=== PATIENT | male | born 1940 | race Asian ===

== ENCOUNTER 2016-09-10 18:30 | Emergency (ER) | payer MEDICAID, OTHER ==
[2016-09-10 19:04] VITALS: RESP 18
--- NOTE | 2016-09-10 19:22 | EDPHY ---
H & P Stated Complaint: bph/shaffer cath removed at 11 am/was unable to void since Time Seen by Provider: 09/10/16 19:22 - Personal History Current Tetanus/Diphtheria Vaccine: Yes - Medical/Surgical History Hx Asthma: No Hx Chronic Respiratory Disease: No Hx Diabetes: No Hx Cardiac Disease: No Hx Renal Disease: No Hx Cirrhosis: No Hx Alcoholism: No Hx HIV/AIDS: No Hx Splenectomy or Spleen Trauma: No Other PMH: HTN bph - Social History Smoking Status: Never smoked Constitutional: Initial Vital Signs Temperature (C) 36.7 C 09/10/16 19:01 Heart Rate 70 09/10/16 19:01 Respiratory Rate 18 09/10/16 19:01 Blood Pressure 110/62 09/10/16 19:01 O2 Sat (%) 98 09/10/16 19:01 O2 Delivery Mode Room Air Allergies/Adverse Reactions: No Known Allergies Allergy (Verified 09/10/16 19:00) Home Medications: Medication Instructions Recorded Htn Med 05/26/14 Ondansetron Odt [Zofran Odt 4 mg 4 mg PO Q4 PRN #10 tab 09/10/16 (RX)] Medical Decision Making ED Course/Re-evaluation: CHIEF COMPLAINT: Difficulty urinating. HISTORY OF PRESENT ILLNESS: This patient is a Czech-speaking 76 year old male complaining of difficulty urinating since catheter removal today around 11am. He had a prostate surgery procedure at [facility] last week, and was directed to remove his catheter today. He has not been able to urinate well and feels his urethra was swollen. He has also not been eating or drinking much due to nausea , which he suspects is related to the antibiotics he was taking when his catheter was in place. No fever, chills, vomiting, shortness of breath, chest pain, or other associated symptoms. HPI obtained primarily from daughter translating at bedside. REVIEW OF SYSTEMS: A 10 point review of systems was performed and is negative with the exception of the elements mentioned in the history of present illness. PHYSICAL EXAM: HR, BP, O2 Sat, RR. Temp noted General Appearance: Alert, well hydrated, appropriate, and non-toxic appearing. Head: Atraumatic without scalp tenderness or obvious injury Eyes: Pupils equal, round, reactive to light and accommodation, EOMI, no trauma , no injection. Ears: Clear bilaterally, no perforation, normal landmarks Nose: Atraumatic, no rhinorrhea, clear. Throat: There is no erythema or exudates, no lesions, normal tonsils, mucus membranes moist. Neck: Supple, 2+ carotid upstroke, nontender, no lymphadenopathy. Respiratory: No retractions, no distress, no wheezes, and no accessory muscle use. Lungs are clear to auscultation bilaterally. Cardiovascular: Regular rate and rhythm, no murmurs, rubs, or gallops. Bilateral carotid, radial, dorsalis pedis, and posterior tibial pulses intact. Good capillary refill all extremities. Gastrointestinal: Suprapubic tenderness. Abdomen is soft, non-distended, no masses, no rebound, no guarding, no peritoneal signs. Genitourinary: Slight urethral swelling. Musculoskeletal: Normal active ROM of all extremities, atraumatic. Neurological: Alert, appropriate, and interactive. Nonfocal neuro exam. Skin: No rashes, good turgor, no nodules on palpation. Past medical history: BPH, hypertension Past surgical history: Prostate/urethral dilation procedure Family history: Noncontributory Social history: Czech. and daughter at bedside. DIFFERENTIAL DIAGNOSIS: Includes but not limited to urinary retention, urinary tract infection, outflow obstruction, medication side effect, neurologic causes. MEDICAL DECISION MAKING: This patient is a 76 year old male complaining of difficulty urinating since catheter removal earlier today. He has had significant nausea secondary to antibiotic use causing him to reduce his oral intake over the past few days. Bladder scan shows about 300mL of urine in the patient's bladder. He was able to urinate a small amount. I discussed catheter replacement versus observation with the patient. I explained that catheter placement would involve another course of antibiotics. The patient feels he is able to urinate, and would prefer to avoid further antibiotics at this point. Plan to discharge home in good condition. I will give him a prescription for Zofran to reduce nausea so he is able to eat and drink adequately. Strict return precautions discussed. The patient will follow up with his surgeon this week for continued instruction. The patient and his family are comfortable with this plan. - Data Points Medications Given: Discontinued Medications Ondansetron HCl (Zofran Odt 4 Mg Prepack#2) 1 btl TAKEHOME EDNOW ONE Stop: 09/10/16 19:49 Last Admin: 09/10/16 20:05 Dose: 1 btl Ondansetron HCl (Zofran Odt) 4 mg PO EDNOW ONE Stop: 09/10/16 19:46 Last Admin: 09/10/16 20:05 Dose: 4 mg Departure - Departure Disposition: Home, Routine, Self-Care Clinical Impression: Nausea, Difficulty in urination Condition: Good Instructions: Urinary Retention in Men (ED) Additional Instructions: 1. Take your Zofran as prescribed for nausea. 2. Follow up this week with your surgeon. If you already have an appointment scheduled, you may keep this but call tomorrow and let the office know you were in the Emergency Department this evening. 3. Return to the Emergency Department for urinary retention, painful urination, vomiting, fever, or any other worsening of condition. Referrals: Sourav Morales MD [Medical Doctor] - As per Instructions Prescriptions: Ondansetron Odt [Zofran Odt 4 mg (RX)] 4 mg PO Q4 PRN #10 tab PRN Reason: Nausea/Vomiting, Use 1st Report Scribed for: Reggie Guillen Report Scribed by: Mary Gilliam Date of Report: 09/10/16 Time of Report: 19:36
[2016-09-10] MEDS ORDERED: ONDANSETRON DISINTEGRATING 4 MG TAB PO ONE (19:45)
[2016-09-10] MEDS ORDERED: ONDANSETRON 4MG PREPACK#2 BTL TAKEHOME ONE (19:48)
[2016-09-10] MEDS ORDERED: ONDANSETRON DISINTEGRATING 4 MG TAB ONE (19:54)
[2016-09-10 20:12] VITALS: BP 137/81; PULSE 78; TEMP 97.9; O2SAT 94
== END 2016-09-10 20:13 | disposition home or self-care (01) ==
DX: R39.198 Other difficulties with micturition (principal); R11.0 Nausea; I10 Essential (primary) hypertension; Z85.46 Personal history of malignant neoplasm of prostate

== ENCOUNTER 2017-01-26 15:39 | Emergency (ER) | payer OTHER, MEDICAID ==
[2017-01-26 15:49] VITALS: TEMP 98.4
--- NOTE | 2017-01-26 16:15 | EDPHY ---
H & P Stated Complaint: Altamirano inserted 01/14 (in [place]?) Pt here for us to remove it Time Seen by Provider: 01/26/17 15:51 HPI/ROS: CHIEF COMPLAINT: "I want my catheter removed HISTORY OF PRESENT ILLNESS: 76-year-old male history of urinary retention, malignant neoplasm of prostate, meatal stenosis, followed at [facility], last seen 01/20/2017 with coude catheter placement. He is requesting the catheter be removed as it is causing him discomfort and is leaking. He denies: Back or flank pain, fever, chills, abdominal pain, nausea , vomiting REVIEW OF SYSTEMS: A ten point review of systems was performed and is negative with the exception of the items mentioned in the HPI PAST MEDICAL & SURGICAL HISTORY: Urinary retention, malignant neoplasm of prostate, meatal stenosis SOCIAL HISTORY: , Chinese speaking only PHYSICAL EXAM (Prior to examination, patient consented to physical exam, hands were washed and my usual and customary physical exam procedures followed) 1) GENERAL: Well-developed, well-nourished, alert and oriented. Appears to be in no acute distress. 2) HEAD: Normocephalic, atraumatic 3) HEENT: Pupils equal, round, reactive to light bilaterally. Sclera anicteric. 4) NECK: Full range of motion, no meningeal signs. 5) LUNGS: Clear auscultation bilaterally, no wheezes, no rhonchi, no retractions. 6) HEART: Regular rate and rhythm, no murmur, no heave, no gallop. 7) ABDOMEN: No guarding, no rebound, no focal tenderness,, 8) MUSCULOSKELETAL: Moving all extremities, no focal areas of tenderness, no obvious trauma. No peripheral edema or discoloration. 9) BACK: No visual or palpable abnormality. 10) SKIN: No rash, no petechiae. 11) : Normal male external genitalia, catheter in place, draining, patent clear yellow urine. Testicles nontender, scrotum no visible abnormality DIFFERENTIAL DIAGNOSIS: In no particular include but limited to urinary retention, Altamirano catheter discomfort, prostate neoplasm - Personal History Current Tetanus Diphtheria and Acellular Pertussis (TDAP): Unsure - Medical/Surgical History Hx Asthma: No Hx Chronic Respiratory Disease: No Hx Diabetes: No Hx Cardiac Disease: No Hx Renal Disease: No Hx Cirrhosis: No Hx Alcoholism: No Hx HIV/AIDS: No Hx Splenectomy or Spleen Trauma: No Other PMH: HTN bph - Social History Smoking Status: Never smoked Constitutional: Initial Vital Signs Temperature (C) 36.9 C 01/26/17 15:45 Heart Rate 89 01/26/17 15:45 Respiratory Rate 18 01/26/17 15:45 Blood Pressure 134/80 H 01/26/17 15:45 O2 Sat (%) 98 01/26/17 15:45 O2 Delivery Mode Room Air Allergies/Adverse Reactions: No Known Allergies Allergy (Verified 01/26/17 15:45) Home Medications: Medication Instructions Recorded Htn Med 05/26/14 Medical Decision Making ED Course/Re-evaluation: 4:15 p.m.: Had a lengthy discussion with the patient with the assistance of a Swidjit seam steamer. I have reviewed his notes from [facility] clinic. The patient is requesting his coude catheter be removed and be left out. He has been informed that in reviewing his old medical records from [facility], there was difficulty placing his catheter initially there and he has been informed that if he is unable to urinate spontaneously he will necessitate further catheter placement which may require urologic consultation due to his concomitant urologic issues. He has a follow-up appointment with [facility] [place] already. He verbalized understanding of these precautions and requested to be removed secondary to discomfort. He did not want to wait in the ER to urinate spontaneously and walked out of the ER. Case discussed with Dr ceron in ER> Departure - Departure Disposition: Home, Routine, Self-Care Clinical Impression: Encounter for Altamirano catheter removal Condition: Good Instructions: Altamirano Catheter Placement and Care (ED) Additional Instructions: If you are unable to urinate on your own go to the closest emergency department immediately Referrals[facility] [Other] - As per Instructions
[2017-01-26 16:54] VITALS: BP 130/78; PULSE 86; RESP 20; O2SAT 97
== END 2017-01-26 16:54 | disposition home or self-care (01) ==
DX: Z46.6 Encounter for fitting and adjustment of urinary device (principal); I10 Essential (primary) hypertension

== ENCOUNTER 2017-01-29 04:22 | Emergency (ER) | payer OTHER, MEDICAID ==
[2017-01-29 04:27] VITALS: PULSE 66; TEMP 97.7
--- NOTE | 2017-01-29 05:15 | EDPHY ---
H & P Stated Complaint: unable to urinate Time Seen by Provider: 01/29/17 05:02 HPI/ROS: Chief Complaint: Urinary retention HPI: 76-year-old male with a history of prostate cancer, urinary retention and meatal stenosis is presenting this morning with difficulty urinating. He had a 18 Tajik coude catheter placed on 01/20/2017 by his urologist at [facility]. He was seen here in the emergency department 2 days ago with complaints about leakage around his catheter and discomfort. At that time the patient requested that the catheter be removed which it was. He did not want another catheter placed at that time. He has not been able to follow up with urologist at [facility]. Since then he has been having increasing difficulty urinating. Patient feels the need to urinate but only has a few drops when he goes to the bathroom. Denies any fevers or chills. No nausea or vomiting. He has had similar episodes in the past. ROS: 10 point Review of Systems is negative except as noted in the HPI. PMH: Prostate cancer, urinary retention, meatal stenosis Social History: No smoking, no alcohol, no recreational drug use Family History: non-contributory Physical Exam: Gen: Awake, Alert, No Distress HEENT: Nose: no rhinorrhea Eyes: PERRLA, EOMI Mouth: Moist mucosa Neck: Supple, no JVD Chest: nontender, lungs clear to auscultation Heart: S1, S2 normal, no murmur Abd: Soft, mild distention, mild suprapubic tenderness, no guarding Back: no CVA tenderness, no midline tenderness Ext: no edema, non-tender Skin: no rash Neuro: CN II-XII intact, Sensation grossly intact, Strength 5/5 in bilateral upper and lower extremities - Medical/Surgical History Hx Asthma: No Hx Chronic Respiratory Disease: No Hx Diabetes: No Hx Cardiac Disease: No Hx Renal Disease: No Hx Cirrhosis: No Hx Alcoholism: No Hx HIV/AIDS: No Hx Splenectomy or Spleen Trauma: No Other PMH: HTN bph - Social History Smoking Status: Never smoked Constitutional: Initial Vital Signs Temperature (C) 36.5 C 01/29/17 04:25 Heart Rate 66 01/29/17 04:25 Respiratory Rate 20 01/29/17 04:25 Blood Pressure 133/85 H 01/29/17 04:25 O2 Sat (%) 97 01/29/17 04:25 O2 Delivery Mode Room Air Allergies/Adverse Reactions: No Known Allergies Allergy (Verified 01/26/17 15:45) Home Medications: Medication Instructions Recorded [facility] 05/26/14 Medical Decision Making ED Course/Re-evaluation: Eighteen Tajik coude catheter placed by nursing staff with some difficulty. He had clear urine output. Patient will be discharged with his catheter in place with follow up with his urologist at [facility]. - Data Points Medications Given: Discontinued Medications Lidocaine (Uroject Lidocaine 2% Jelly) 20 ml UR EDNOW ONE Stop: 01/29/17 05:19 Last Admin: 01/29/17 05:19 Dose: 20 ml Departure - Departure Disposition: Home, Routine, Self-Care Clinical Impression: Acute retention of urine Condition: Good Instructions: Urinary Retention in Men (ED) Additional Instructions: Follow up with your urologist at [facility] in 2-3 days. Return to the emergency depart for increasing pain, fevers, chills, foul- smelling urine, or any other concerns. Referrals: Sourav Morales MD [Medical Doctor] - As per Instructions
[2017-01-29] MEDS ORDERED: LIDOCAINE 2% JELLY 20 ML (UROJECT) UR ONE (05:18)
[2017-01-29] MEDS ORDERED: LIDOCAINE 2% JELLY 20 ML (UROJECT) ONE (05:18)
[2017-01-29 06:10] VITALS: BP 130/82; RESP 16; O2SAT 98
== END 2017-01-29 06:10 | disposition home or self-care (01) ==
PROC: 0T9B70Z Drainage of Bladder with Drainage Device, Via Natural or Artificial Opening (ICD-10-PCS; principal; 2017-01-29)
DX: R33.9 Retention of urine, unspecified (principal); I10 Essential (primary) hypertension; Z85.46 Personal history of malignant neoplasm of prostate

== ENCOUNTER 2017-01-29 16:42 | Emergency (ER) | payer OTHER, MEDICAID ==
--- NOTE | 2017-01-29 18:34 | EDPHY ---
H & P Stated Complaint: catheter issues Time Seen by Provider: 01/29/17 18:34 HPI/ROS: HPI: This is a 76-year-old male presents with Chief Complaint: Catheter problem Location: Quality: catheter problem Duration: Since this morning Signs and Symptoms: no fever, no nausea, no vomiting, no hematemesis, no blood in stool, no abdominal bloating, no diarrhea, no back pain, no urinary symptoms , no testicular/groin pain, no indigestion, no chest pain, no shortness of breath Timing: Acute on chronic Severity: Moderate Context: Patient presents with complaints of testicular discomfort and inability to urinate a full stream since coude placement last night. He also reports blood in his Altamirano leg bag. He called his urologist this evening who advised him to go to the emergency room for further evaluation. He denies any fever, chills, abdominal pain, back pain, penile discharge. He has a history of prostate cancer, urinary retention peres, and meatal stenosis. Followed by urologist at [facility]. He had a 18 Israeli coude catheter placed on 01/20/2017. He had leakage around the catheter site and re-presented to the emergency room on 01/20 but refused to have but catheter placed again. He then re-presented to the emergency room yesterday with complaints of urinary retention. An 18 Israeli coude catheter was placed by nursing staff with some difficulty he had clear urine output. Modifying Factors: None Comment: ROS: see HPI Constitutional: No fever, no chills, no weight loss Eyes: No blurred vision Respiratory: No shortness of breath, no cough Cardiovascular: No chest pain, no palpitations Gastrointestinal: No nausea, no vomiting, no diarrhea, no hematemesis, no blood in stool Genitourinary: No dysuria, no blood in urine Extremities: No myalgias, no edema Neurologic: No weakness, no numbness Skin: No rashes, no petechiae Hematologic: No bruising, no bleeding MEDICAL/SURGICAL/SOCIAL HISTORY: Medical history: Hypertension, BPH, prostate cancer Surgical history: Denies Social history: . CONSTITUTIONAL: Nontoxic appearing adult male, awake and alert, no obvious distress HEENT: Atraumatic and normocephalic, PERRL, EOMI. Tympanic membranes clear. Oropharynx clear, no exudate and moist pink mucosa. Airway patent. No lymphadenopathy. No meningismus. Cardiovascular: Normal S1/S2, regular rate, regular rhythm, without murmur rub or gallop. PULMONARY/CHEST: Symmetrical and nontender. Clear to auscultation bilaterally. Good air movement. No accessory muscle usage. ABDOMEN: Soft, nondistended, nontender, no rebound, no guarding, no peritoneal signs, no masses or organomegaly. No CVAT. : No testicular swelling or pain, negative Prehn sign. Catheter appropriate and the urethra-no leakage. Altamirano bag is full of bloody urine. EXTREMITIES: 2/2 pulses, strength 5/5, no deformities, no clubbing, no cyanosis or edema. NEUROLOGICAL: no focal neuro deficits. GCS 15. SKIN: Warm and dry, no erythema. no rash. Good capillary refill. Source: Patient, Stereotype Caster (Stereotype Caster) Exam Limitations: Language barrier (Nepali) - Personal History Current Tetanus/Diphtheria Vaccine: Yes Current Tetanus Diphtheria and Acellular Pertussis (TDAP): Yes - Medical/Surgical History Hx Asthma: No Hx Chronic Respiratory Disease: No Hx Diabetes: No Hx Cardiac Disease: No Hx Renal Disease: No Hx Cirrhosis: No Hx Alcoholism: No Hx HIV/AIDS: No Hx Splenectomy or Spleen Trauma: No Other PMH: HTN bph - Social History Smoking Status: Never smoked Constitutional: Initial Vital Signs Temperature (C) 36.6 C 01/29/17 17:11 Heart Rate 86 01/29/17 17:11 Respiratory Rate 16 01/29/17 17:11 Blood Pressure 127/77 H 01/29/17 17:11 O2 Sat (%) 95 01/29/17 17:11 O2 Delivery Mode Room Air Allergies/Adverse Reactions: No Known Allergies Allergy (Verified 01/29/17 17:02) Home Medications: Medication Instructions Recorded Htn Med 05/26/14 Multivitamin 01/29/17 Medical Decision Making ED Course/Re-evaluation: Labs including coags, urinalysis ordered Fully irrigated copiously by nursing staff. Verified placement of balloon in the bladder. Labs reviewed and no signs of anemia, coagulopathy Notified by nursing that full leg bag had not been empty since it was placed earlier this morning. She irrigated the L of fluid and has pink tinged urine at this time with urine flowing freely and no further urinary retention. Urinalysis shows no signs of infection Monitored for over 5 hr in the ER with only pink urine draining out of the catheter. Explained thoroughly with the Nepali newspaper editor managing the process of urinary retention , BPH, Altamirano catheter. This patient was seen under the supervision of my secondary supervising physician. I evaluated care for this patient independently. Discussed this patient with Dr. Norris who did not see the patient. Differential Diagnosis: Differential diagnosis includes but is not limited to catheter tubing clot, coagulopathy, migration of catheter balloon, urinary retention, urinary tract infection. - Data Points Laboratory Results: Laboratory Results 01/29/17 19:30 01/29/17 01/29/17 01/29/17 20:20 19:30 19:30 WBC 9.44 10^3/uL 10^3/uL (3.80-9.50) RBC 4.26 10^6/uL L 10^6/uL (4.40-6.38) Hgb 13.7 g/dL g/dL (13.7-17.5) Hct 38.7 % L % (40.0-51.0) MCV 90.8 fL fL (81.5-99.8) MCH 32.2 pg pg (27.9-34.1) MCHC 35.4 g/dL g/dL (32.4-36.7) RDW 12.3 % % (11.5-15.2) Plt Count 166 10^3/uL 10^3/uL (150-400) MPV 10.0 fL fL (8.7-11.7) Neut % (Auto) 75.9 % H % (39.3-74.2) Lymph % (Auto) 12.8 % L % (15.0-45.0) [place] % (Auto) 9.5 % % (4.5-13.0) Eos % (Auto) 1.1 % % (0.6-7.6) Baso % (Auto) 0.1 % L % (0.3-1.7) Nucleat RBC Rel Count 0.0 % % (0.0-0.2) Absolute Neuts (auto) 7.16 10^3/uL H 10^3/uL (1.70-6.50) Absolute Lymphs (auto) 1.21 10^3/uL 10^3/uL (1.00-3.00) Absolute Monos (auto) 0.90 10^3/uL H 10^3/uL (0.30-0.80) Absolute Eos (auto) 0.10 10^3/uL 10^3/uL (0.03-0.40) Absolute Basos (auto) 0.01 10^3/uL L 10^3/uL (0.02-0.10) Absolute Nucleated RBC 0.00 10^3/uL 10^3/uL (0-0.01) Immature Gran % 0.6 % % (0.0-1.1) Immature Gran # 0.06 10^3/uL 10^3/uL (0.00-0.10) PT 13.5 SEC SEC (12.0-15.0) INR 1.01 (0.83-1.16) APTT 32.2 SEC SEC (23.0-38.0) Urine Color RED Urine Appearance HAZY Urine pH 7.0 (5.0-7.5) Ur Specific [place] 1.003 (1.002-1.030) Urine Protein 2+ H (NEGATIVE) Urine Ketones NEGATIVE (NEGATIVE) Urine Blood 2+ H (NEGATIVE) Urine Nitrate NEGATIVE (NEGATIVE) Urine Bilirubin NEGATIVE (NEGATIVE) Urine Urobilinogen NEGATIVE EU EU (0.2-1.0) Ur Leukocyte Esterase TRACE H (NEGATIVE) Urine RBC 50-182 /hpf H /hpf (0-3) Urine WBC 3-5 /hpf H /hpf (0-3) Ur Epithelial Cells TRACE /lpf /lpf (NONE-1+) Urine Glucose 1+ H (NEGATIVE) Departure - Departure Disposition: Home, Routine, Self-Care Clinical Impression: Altamirano catheter in place Altamirano catheter problem Qualifiers: Encounter type: subsequent encounter Qualified Code(s): T83.9XXD - Unspecified complication of genitourinary prosthetic device, implant and graft, subsequent encounter Condition: Good Instructions: Altamirano Catheter Placement and Care (ED) Additional Instructions: Please call your urologist at [facility] to follow up with next week. Drain your Altamirano catheter bag approximately every 3 hr.
[2017-01-29 19:40] LABS: % IMMATURE GRANULYOCYTES 0.6 % (0.0-1.1); ABSOLUTE IMMATURE GRANULOCYTES 0.06 10^3/uL (0.00-0.10); ADD DIFF? NO; ADD MORPH? NO; ADD SCAN? NO; ATYPICAL LYMPHOCYTE FLAG 0 (0-99); FRAGMENT RBC FLAG 0 (0-99); HEMATOCRIT 38.7 % (40.0-51.0); HEMOGLOBIN 13.7 g/dL (13.7-17.5); LEFT SHIFT FLG 0 (0-99); LIPEMIA HEMOLYSIS FLAG 90 (0-99); MEAN CELL HEMOGLOBIN 32.2 pg (27.9-34.1); MEAN CELL HEMOGLOBIN CONCENTR. 35.4 g/dL (32.4-36.7); MEAN CELL VOLUME 90.8 fL (81.5-99.8); PLATELET CLUMPS FLAG 30 (0-99); PLATELET COUNT 166 10^3/uL (150-400); RED BLOOD CELL COUNT 4.26 10^6/uL (4.40-6.38); RED CELL DISTRIBUTION WIDTH 12.3 % (11.5-15.2)
[2017-01-29 19:52] LABS: INR 1.01 (0.83-1.16); PROTIME(PATIENT) 13.5 SEC (12.0-15.0)
[2017-01-29 19:53] LABS: APTT 32.2 SEC (23.0-38.0)
[2017-01-29 20:40] LABS: COLOR RED; LEUKOCYTE ESTERASE,URINE TRACE (NEGATIVE); NITRITE,URINE NEGATIVE (NEGATIVE)
[2017-01-29 21:16] LABS: RBC,URINE 50-182 /hpf (0-3)
[2017-01-29 21:42] VITALS: RESP 18; TEMP 98.4
[2017-01-29 21:45] VITALS: BP 118/66; PULSE 74; O2SAT 95
== END 2017-01-29 21:44 | disposition home or self-care (01) ==
DX: T83.031A Leakage of indwelling urethral catheter, initial encounter (principal); I10 Essential (primary) hypertension; Z85.46 Personal history of malignant neoplasm of prostate; Y73.2 Prosthetic and other implants, materials and accessory gastroenterology and urology devices associated with adverse incidents

== ENCOUNTER 2017-02-11 12:46 | Emergency (ER) | payer OTHER, MEDICAID ==
[2017-02-11 13:00] VITALS: TEMP 97.7
--- NOTE | 2017-02-11 13:11 | EDPHY ---
H & P Stated Complaint: needs RX. hematuria HPI/ROS: CHIEF COMPLAINT: Blood in catheter, unable to urinate HISTORY OF PRESENT ILLNESS: The patient is a Hebrew speaking 76 y/o male with a history of prostate CA, urinary retention, and meatal stenosis. He had an 18F coude catheter placed by his urologist on 01/20/17. He was seen in this ED on the with leaking around the catheter and requested to have it removed-- which it was. He returned on the with urinary retention and had a catheter replaced. Today he complains blood in his catheter tubing and drainage bag, and pain in his urethra. He saw his urologist 3 days ago for blood in his catheter. He has used Urogesic in the past and feels that it helps with his pain. He ran out of the medication. He emptied his catheter this morning but has not had urine in his bag since (just blood). He denies fever, abdominal pain, diarrhea, vomiting, or other associated symptoms. Information obtained through a Hebrew spanish medical interpreter. REVIEW OF SYSTEMS: A ten point review of systems was performed and is negative with the exception of the items mentioned in the HPI. Past medical history: Prostate CA, meatal stenosis, urinary retention Past surgical history: Denies Family history: Non-contributory Social history: at bedside, Hebrew speaking, Dr. Gonzalez at General Appearance: Alert. Vital signs reviewed. BP 130/82 at triage. Eyes: Pupils equal and round, no conjunctival injection, no discharge. Anicteric. ENT, Mouth: Mucous membranes are moist, no oropharyngeal erythema or edema. Neck: No lymphadenopathy, supple. Respiratory: Lungs are clear to auscultation; no wheezes, rales, or rhonchi. Cardiovascular: Regular rate and rhythm; no murmur, rub, or gallop. Gastrointestinal: Suprapubic tenderness, abdomen is soft, no abdominal distension, no masses or organomegaly, bowel sounds normal. Blood in drainage bag. Skin: Warm and dry, no rashes on exposed skin, normal color. Back: Nontender to palpation over the thoracolumbar spine. No CVAT. Extremities: No lower extremity edema, no calf tenderness or swelling. Neurological: Alert and oriented. Moving all four extremities easily and equally. Psychiatric: Normal affect. - Personal History Current Tetanus/Diphtheria Vaccine: Yes Current Tetanus Diphtheria and Acellular Pertussis (TDAP): Yes - Medical/Surgical History Hx Asthma: No Hx Chronic Respiratory Disease: No Hx Diabetes: No Hx Cardiac Disease: No Hx Renal Disease: No Hx Cirrhosis: No Hx Alcoholism: No Hx HIV/AIDS: No Hx Splenectomy or Spleen Trauma: No Other PMH: HTN, bph, TURP - Social History Smoking Status: Never smoked Constitutional: Initial Vital Signs Temperature (C) 36.5 C 02/11/17 12:59 Heart Rate 93 02/11/17 12:59 Respiratory Rate 16 02/11/17 12:59 Blood Pressure 130/82 H 02/11/17 12:59 O2 Sat (%) 95 02/11/17 12:59 O2 Delivery Mode Room Air Allergies/Adverse Reactions: No Known Allergies Allergy (Verified 02/11/17 12:50) Home Medications: Medication Instructions Recorded Htn Med 05/26/14 Multivitamin 01/29/17 Methenam/Sod Phos/Mblue/Hyoscy 1 each PO QID #20 tablet 02/11/17 [Urogesic-Blue Tablet] URO BLUE TABLET 02/11/17 Medical Decision Making ED Course/Re-evaluation: The patient has been provided with the Urogesic he requested. He refused irrigation but spontaneously began producing urine while here. I am trying to contact his urologist to determine the nature of his care plan. I spoke to Dr. June Taveras at urology regarding this patient. I informed her of his multiple visits. She approved providing him with Urogesic and requested a urine culture. Mr. Mccoy is scheduled for cystoscopy in [place]. I reassessed the patient and found his condition improved. I informed him of the dosing for the Urogesic. I instructed him to follow up as planned. Differential Diagnosis: DDX incluides but is not limited to meatal stenosis, outlet obstruction, coagulopathy, UTI. - Data Points Laboratory Results: Laboratory Results 02/11/17 14:45 02/11/17 14:45 Departure - Departure Disposition: Home, Routine, Self-Care Clinical Impression: Altamirano catheter in place on admission Hematuria Qualifiers: Hematuria type: unspecified type Qualified Code(s): R31.9 - Hematuria, unspecified Condition: Good Instructions: Altamirano Catheter Placement and Care (ED), Hematuria (ED) Additional Instructions: 1. Take your prescription as directed. Your urologist plans to do a cystoscopy in the future to determine the source of the bleeding. 2. If you are unable to urinate please return to the ED or go to your urologist. 2. Call your urologist to determine when they would like to follow up with you. 3. Return to the ED for any worsening of condition. Referrals: June Taveras [Other] - As per Instructions Prescriptions: Methenam/Sod Phos/Mblue/Hyoscy [Urogesic-Blue Tablet] 1 each PO QID #20 tablet Print Language: Hebrew Report Scribed for: Betina Pak Report Scribed by: Elizabeth Tang Date of Report: 02/11/17 Time of Report: 14:04 Physician Review and Approval Statement: 02/11/17 13:11 Portions of this note were transcribed by the medical secretary teacher. I, Dr. Betina Pak, personally performed the history, physical exam, and medical decision- making; and confirmed the accuracy of the information in the transcribed note.
[2017-02-11] MEDS ORDERED: PHENAZOPYRIDINE HCL 200 MG TAB PO ONE (14:24)
[2017-02-11 14:55] LABS: PLATELET COUNT 190 10^3/uL (150-400)
[2017-02-11 15:04] LABS: INR 1.04 (0.83-1.16); PROTIME(PATIENT) 13.8 SEC (12.0-15.0)
[2017-02-11 16:22] VITALS: BP 133/85; PULSE 82; RESP 18; O2SAT 94
== END 2017-02-11 16:23 | disposition home or self-care (01) ==
DX: R31.9 Hematuria, unspecified (principal); I10 Essential (primary) hypertension; Z85.46 Personal history of malignant neoplasm of prostate; Z96.0 Presence of urogenital implants